=== PATIENT | male | born 2000 | race Caucasian/White ===

== ENCOUNTER 2022-08-04 12:57 | Emergency (ER) | payer MEDICAID, OTHER ==
[~2022-08-04] VITALS: Ht 182.9 cm; Wt 82.0 kg
[2022-08-04 15:13] VITALS: BP 110/73
[2022-08-04] MEDS ORDERED: cefTRIAXone SOD 1,000 MG VL IM ONE (15:30)
[2022-08-04] MEDS ORDERED: ONDANSETRON ODT 4 MG TAB PO ONE (15:30)
[2022-08-04] MEDS ORDERED: AZIT500T66 PO (15:39)
[2022-08-04] MEDS ORDERED: PROM1SOL4 PO (15:40)
[2022-08-04] MEDS ORDERED: ONDA-144 PO (15:40)
[2022-08-04] MEDS ORDERED: PRED20TA2 PO (15:40)
== END 2022-08-04 16:01 | disposition home or self-care (01) ==
LOC: ER 12:57
DX: J02.9 Acute pharyngitis, unspecified (principal); J20.9 Acute bronchitis, unspecified
CPT/HCPCS: 71045; 96372; 99283; J0696; Q0162